=== PATIENT | female | born 1945 | race Hispanic/Latino ===

== ENCOUNTER → 2024-08-31 | Outpatient (REF) | payer BC ==
[~2024-08-31] MED LIST: IOPAMIDOL 370 MG/ML 100 ML INFUS..BTL INJ ONE; SODIUM CHLORIDE 0.9% 100 ML ONE
[2024-08-31 14:39] LABS: CREATININE, SERUM 0.82 mg/dL (0.57-1.11)
== END ==
LOC: CT 13:43
PROVIDERS: ATTEND Internal Medicine Cardiovascular Disease
DX: I73.89 Other specified peripheral vascular diseases (principal)
CPT/HCPCS: 36415; 75635; 82565; 84520; J7050; Q9967

== ENCOUNTER 2024-09-11 23:33 | Observation (INO) | payer MEDICARE, BC ==
[~2024-09-11] VITALS: Ht 160 cm; Wt 74.9 kg
[2024-09-11 23:36] VITALS: PULSE 98; RESP 19; TEMP 97.9
[2024-09-12] VITALS (18 sets, daily range): BP systolic 135–189; BP diastolic 57–87; PULSE 81–105; RESP 11–27; TEMP 97.9–98.9; O2SAT 93–99
[2024-09-12 00:13] LABS: BASOPHILS % 0.3 % (0.0-1.0); HEMATOCRIT 42.3 % (34.2-44.1); HEMOGLOBIN 13.3 g/dL (12.0-16.0); LYMPHOCYTES # (AUTO) 0.5 (1.0-3.2); LYMPHOCYTES % 6.1 % (18.0-39.1); MEAN CORPUSCULAR HEMOGLOBIN 29.4 pg (28-32); MEAN CORPUSCULAR HGB CONC 31.4 g/dL (31-35); MEAN CORPUSCULAR VOLUME 93.4 fL (81-99); MONOCYTES % 11.6 % (4.4-11.3); NEUTROPHILS # (AUTO) 7.2 (2.1-6.9); NEUTROPHILS % 81.4 % (38.7-80.0); PLATELET COUNT 256 x10e3/uL (140-360); RED BLOOD COUNT 4.53 x10e6/uL (3.6-5.1); RED CELL DISTRIBUTION WIDTH 13.3 % (11.7-14.4)
[2024-09-12] MEDS: DEXTROSE 50% SYRINGE 50 ML IV STA (01:19)
[2024-09-12] MEDS: DEXTROSE 5%/0.45% SOD CHL 1,000 ML IV ONE (01:19)
[2024-09-12 01:21] LABS: ANION GAP 16.2 mmol/L (8-16); CALCIUM 9.2 mg/dL (8.4-10.2); CREATININE, SERUM 0.8 mg/dL (0.57-1.11)
[2024-09-12 01:26] LABS: POTASSIUM 4.2 mmol/L (3.5-5.1)
[2024-09-12] MEDS ORDERED: ONDANSETRON HCL INJ 2MG/ML 2ML 2 MG/ML VIAL IV PRN (01:45)
[2024-09-12] MEDS ORDERED: DEXTROSE 50% SYRINGE 50 ML IV PRN (01:45)
[2024-09-12] MEDS ORDERED: COLCHICINE0.6 M1 PO (08:58)
[2024-09-12] MEDS ORDERED: LISINOPRIL10 MG PO (08:58)
[2024-09-12] MEDS ORDERED: GLIMEPIRIDE1 MG PO (08:58)
[2024-09-12] MEDS ORDERED: METFORMIN HCL500 M1 PO (08:58)
[2024-09-12] MEDS ORDERED: HYDRALAZINE HCL 20 MG/ML VIAL IV PRN (10:30)
[2024-09-12] MEDS ORDERED: BISACODYL 10 MG SUPP PR PRN (10:30)
[2024-09-12] MEDS ORDERED: POLYETHYLENE GLYCOL 3350 17 GM PACK PO PRN (10:30)
[2024-09-12] MEDS: LISINOPRIL 10 MG TAB PO SCH (12:04)
[2024-09-12] MEDS: HEPARIN SOD (PORCINE) 1000 UNIT/ML 30ML ONE (15:37)
[2024-09-12] MEDS: NITROGLYCERIN/D5W 200 MCG/ML 250 ML ONE (15:38)
[2024-09-12] MEDS: VERAPAMIL HCL 2.5 MG/ML 2 ML VIAL ONE (15:38)
[2024-09-12] MEDS: HEPARIN SOD/SOD CHLORIDE 2,000 ML ONE (15:38)
[2024-09-12] MEDS: LIDOCAINE HCL 2% LOCAL 20 ML VIAL ONE (15:38)
[2024-09-12] MEDS: IOPAMIDOL 370 MG/ML 100 ML INFUS..BTL INJ ONE ×2 (15:39→15:40)
[2024-09-12] MEDS: SODIUM CHLORIDE 0.9% 1000ML 2,000 ML ONE (15:39)
[2024-09-12] MEDS: MIDAZOLAM HCL 2 MG/2 ML VIAL ONE (15:40)
[2024-09-12] MEDS: FENTANYL CITRATE/PF 100MCG/2 ML INJ ONE (15:40)
[2024-09-12] MEDS: SODIUM CHLORIDE 0.9% 1000ML 1,000 ML ONE (15:41)
[2024-09-12] MEDS: CLOPIDOGREL BISULFATE 75 MG TAB ONE (15:41)
[2024-09-12] MEDS: ASPIRIN 325 MG TAB ONE (15:41)
[2024-09-12] MEDS: ENOXAPARIN SOD INJ 40 MG/0.4 ML SYR SC SCH (16:31)
[2024-09-12] MEDS: ACETAMINOPHEN 325 MG TAB PO PRN (19:02)
[2024-09-13] VITALS (7 sets, daily range): BP systolic 132–163; BP diastolic 45–76; PULSE 79–86; RESP 15–23; TEMP 97.6–98; O2SAT 97–99
[2024-09-13 06:45] LABS: BASOPHILS % 0.3 % (0.0-1.0); HEMATOCRIT 36.4 % (34.2-44.1); HEMOGLOBIN 11.6 g/dL (12.0-16.0); LYMPHOCYTES # (AUTO) 0.7 (1.0-3.2); LYMPHOCYTES % 11.4 % (18.0-39.1); MEAN CORPUSCULAR HEMOGLOBIN 29.5 pg (28-32); MEAN CORPUSCULAR HGB CONC 31.9 g/dL (31-35); MEAN CORPUSCULAR VOLUME 92.6 fL (81-99); MONOCYTES # (AUTO) 0.8 (0.2-0.8); MONOCYTES % 11.9 % (4.4-11.3); NEUTROPHILS # (AUTO) 4.9 (2.1-6.9); NEUTROPHILS % 75.9 % (38.7-80.0); PLATELET COUNT 237 x10e3/uL (140-360); RED BLOOD COUNT 3.93 x10e6/uL (3.6-5.1); RED CELL DISTRIBUTION WIDTH 13.3 % (11.7-14.4); WHITE BLOOD COUNT 6.49 x10e3/uL (4.8-10.8)
[2024-09-13 07:17] LABS: CREATININE, SERUM 0.9 mg/dL (0.57-1.11)
[2024-09-13] MEDS ORDERED: SENNOSIDES 8.6 MG TAB PO SCH (09:00)
[2024-09-13] MEDS ORDERED: DOCUSATE SODIUM 100 MG CAP PO SCH (09:00)
[2024-09-13] MEDS ORDERED: PLAVIX75 MG PO (09:52)
[2024-09-13] MEDS ORDERED: ASPIRIN EC81 MG PO (09:52)
[2024-09-13] MEDS ORDERED: ATORVASTATIN CA40 MG PO (09:52)
[2024-09-13] MEDS: ASPIRIN 81 MG CHEW TAB PO SCH (10:17)
[2024-09-13] MEDS: CLOPIDOGREL BISULFATE 75 MG TAB PO SCH (10:18)
[2024-09-13] MEDS ORDERED: CLOPIDOGREL75 MG PO (11:42)
== END 2024-09-13 12:25 | disposition home or self-care (01) ==
LOC: ER 23:37 → INTOOBSV 09-12 01:44 → ERHOLD 09-12 01:44 → ICU 09-12 02:31
PROVIDERS: ADMIT Internal Medicine; ATTEND Internal Medicine
DX: T38.3X1A Poisoning by insulin and oral hypoglycemic [antidiabetic] drugs, accidental (unintentional), initial encounter (principal); E11.649 Type 2 diabetes mellitus with hypoglycemia without coma; G93.41 Metabolic encephalopathy; I70.223 Atherosclerosis of native arteries of extremities with rest pain, bilateral legs; I70.92 Chronic total occlusion of artery of the extremities; I10 Essential (primary) hypertension; K52.1 Toxic gastroenteritis and colitis; E78.5 Hyperlipidemia, unspecified; Z79.84 Long term (current) use of oral hypoglycemic drugs; Z79.82 Long term (current) use of aspirin; Z79.02 Long term (current) use of antithrombotics/antiplatelets; Z79.899 Other long term (current) drug therapy
CPT/HCPCS: 36415 ×3; 37225; 70450; 76937; 80048 ×2; 82948 ×3; 83036; 83735; 84484; 85025 ×2; 93005; 94799; 99284; C1724; C1760 ×2; C1769 ×3; C1887; C1894; C2623; G0378 ×2; J1644; J1650; J2003; J2250; J3010; J7030; J7799; Q9967; 36247; 37224; 75630; 75716; 99152; 99153

== ENCOUNTER 2024-11-09 13:00 | Inpatient (IN) | payer BC, MEDICARE ==
[2024-11-08 10:10] LABS: BASOPHILS % 0.4 % (0.0-1.0); HEMATOCRIT 37.6 % (34.2-44.1); HEMOGLOBIN 12.4 g/dL (12.0-16.0); LYMPHOCYTES # (AUTO) 0.7 (1.0-3.2); MEAN CORPUSCULAR HEMOGLOBIN 29.3 pg (28-32); MEAN CORPUSCULAR VOLUME 88.9 fL (81-99); MONOCYTES # (AUTO) 0.5 (0.2-0.8); MONOCYTES % 9.3 % (4.4-11.3); NEUTROPHILS # (AUTO) 3.9 (2.1-6.9); NEUTROPHILS % 76.7 % (38.7-80.0); PLATELET COUNT 193 x10e3/uL (140-360); RED BLOOD COUNT 4.23 x10e6/uL (3.6-5.1); RED CELL DISTRIBUTION WIDTH 14.8 % (11.7-14.4); WHITE BLOOD COUNT 5.07 x10e3/uL (4.8-10.8)
[2024-11-08 10:40] LABS: INR 1.04; PROTHROMBIN TIME 14.2 seconds (11.9-14.5)
[2024-11-08 10:49] LABS: ALBUMIN 3.8 g/dL (3.5-5.0); ALBUMIN/GLOBULIN RATIO 1.4 (0.8-2.0); ANION GAP 17.3 mmol/L (8-16); BILIRUBIN,TOTAL 0.9 mg/dL (0.2-1.2); CALCIUM 9.4 mg/dL (8.4-10.2); CREATININE, SERUM 0.79 mg/dL (0.57-1.11); POTASSIUM 4.3 mmol/L (3.5-5.1); TOTAL PROTEIN 6.6 g/dL (6.5-8.1)
[2024-11-09] VITALS (46 sets, daily range): BP systolic 55–177; BP diastolic 31–107; PULSE 52–89; RESP 10–26; TEMP 95–98.5; O2SAT 90–100
[~2024-11-09] VITALS: Ht 160 cm; Wt 69.4 kg
[~2024-11-09 13:00] MED LIST changes: +ASPIRIN EC81 MG PO; +ATORVASTATIN CA40 MG PO; +CLOPIDOGREL75 MG PO; +COLCHICINE0.6 M1 PO; +GLIMEPIRIDE1 MG PO; -IOPAMIDOL 370 MG/ML 100 ML INFUS..BTL INJ ONE; +LISINOPRIL10 MG PO; +METFORMIN HCL500 M1 PO; +PLAVIX75 MG PO; -SODIUM CHLORIDE 0.9% 100 ML ONE
[2024-11-09] MEDS ORDERED: SODIUM CHLORIDE FLUSH 10 ML SYR INJ PRN (16:45)
[2024-11-09 18:04] LABS: BASOPHILS # (AUTO) 0.1 (0.0-0.1); BASOPHILS % 0.3 % (0.0-1.0); HEMATOCRIT 33.7 % (34.2-44.1); HEMOGLOBIN 11.3 g/dL (12.0-16.0); LYMPHOCYTES # (AUTO) 1.7 (1.0-3.2); LYMPHOCYTES % 10.9 % (18.0-39.1); MEAN CORPUSCULAR HEMOGLOBIN 29.9 pg (28-32); MEAN CORPUSCULAR HGB CONC 33.5 g/dL (31-35); MEAN CORPUSCULAR VOLUME 89.2 fL (81-99); MONOCYTES # (AUTO) 1.5 (0.2-0.8); MONOCYTES % 9.9 % (4.4-11.3); NEUTROPHILS % 77.8 % (38.7-80.0); PLATELET COUNT 250 x10e3/uL (140-360); RED BLOOD COUNT 3.78 x10e6/uL (3.6-5.1); RED CELL DISTRIBUTION WIDTH 14.8 % (11.7-14.4); WHITE BLOOD COUNT 15.38 x10e3/uL (4.8-10.8)
[2024-11-09 18:13] LABS: ANION GAP 12.8 mmol/L (8-16); CALCIUM 7.9 mg/dL (8.4-10.2); CREATININE, SERUM 0.7 mg/dL (0.57-1.11); POTASSIUM 3.8 mmol/L (3.5-5.1)
[2024-11-09] MEDS: HEPARIN SOD/SOD CHLORIDE 2,000 ML ONE ×2 (22:32→22:37)
[2024-11-09] MEDS: HEPARIN SOD (PORCINE) 1000 UNIT/ML 30ML ONE ×2 (22:33→22:38)
[2024-11-09] MEDS: NITROGLYCERIN/D5W 200 MCG/ML 0 ML ONE (22:35)
[2024-11-09] MEDS: VERAPAMIL HCL 2.5 MG/ML 2 ML VIAL ONE ×2 (22:35→22:38)
[2024-11-09] MEDS: LIDOCAINE HCL 2% LOCAL 20 ML VIAL ONE ×2 (22:35→22:38)
[2024-11-09] MEDS: SODIUM CHLORIDE 0.9% 1000ML 2,000 ML ONE (22:35)
[2024-11-09] MEDS: IOPAMIDOL 370 MG/ML 100 ML INFUS..BTL INJ ONE ×2 (22:35→22:38)
[2024-11-09] MEDS: MIDAZOLAM HCL 2 MG/2 ML VIAL ONE ×3 (22:36→22:38)
[2024-11-09] MEDS: FENTANYL CITRATE/PF 100MCG/2 ML INJ ONE ×3 (22:36→22:38)
[2024-11-09] MEDS: ASPIRIN 325 MG TAB ONE (22:36)
[2024-11-09] MEDS: Morphine 4mg INJECTION 4 MG/ML INJ ONE (22:37)
[2024-11-09] MEDS: CLOPIDOGREL BISULFATE 75 MG TAB ONE (22:37)
[2024-11-09] MEDS: PHENYLEPHRINE HCL 1% 10 MG/ML VIAL ONE (22:37)
[2024-11-09] MEDS: NOREPINEPHRINE 8 MG/D5W 250 ML 250 ML ONE (22:37)
[2024-11-09] MEDS: SODIUM CHLORIDE 0.9% 100 ML ONE (22:37)
[2024-11-09] MEDS: NITROGLYCERIN/D5W 200 MCG/ML 250 ML ONE (22:38)
[2024-11-09] MEDS: MUPIROCIN 2% OINT 22 GM TUBE TOP SCH (22:54)
[2024-11-09] MEDS: ONDANSETRON HCL INJ 2MG/ML 2ML 2 MG/ML VIAL IV PRN (23:22)
[2024-11-10] VITALS (19 sets, daily range): BP systolic 108–185; BP diastolic 41–94; PULSE 70–95; RESP 13–30; TEMP 98.1–98.2; O2SAT 94–100
[2024-11-10] MEDS ORDERED: GUAIFENESIN/DEXTROMETHORPHAN LIQD 5 ML UDC PO PRN (01:00)
[2024-11-10] MEDS ORDERED: MELATONIN 3 MG TAB PO PRN (01:00)
[2024-11-10] MEDS ORDERED: DEXTROSE 50% SYRINGE 50 ML IV PRN (01:00)
[2024-11-10] MEDS ORDERED: DOCUSATE SODIUM 100 MG CAP PO PRN (01:00)
[2024-11-10] MEDS ORDERED: MAGNESIUM/ALUMINUM/SIMETHICONE 30 ML UDC PO PRN (01:00)
[2024-11-10] MEDS: SODIUM CHLORIDE 0.9% 1000ML 1,000 ML IV SCH (01:11)
[2024-11-10] MEDS: ACETAMINOPHEN 325 MG TAB PO PRN (01:12)
[2024-11-10 07:02] LABS: BASOPHILS % 0.1 % (0.0-1.0); HEMATOCRIT 27.6 % (34.2-44.1); LYMPHOCYTES # (AUTO) 0.5 (1.0-3.2); LYMPHOCYTES % 5.1 % (18.0-39.1); MEAN CORPUSCULAR HEMOGLOBIN 29.5 pg (28-32); MEAN CORPUSCULAR HGB CONC 32.6 g/dL (31-35); MEAN CORPUSCULAR VOLUME 90.5 fL (81-99); MONOCYTES % 9.1 % (4.4-11.3); NEUTROPHILS # (AUTO) 8.9 (2.1-6.9); NEUTROPHILS % 85.2 % (38.7-80.0); PLATELET COUNT 185 x10e3/uL (140-360); RED BLOOD COUNT 3.05 x10e6/uL (3.6-5.1); RED CELL DISTRIBUTION WIDTH 14.9 % (11.7-14.4)
[2024-11-10 07:25] LABS: ANION GAP 14.2 mmol/L (8-16); CALCIUM 8.3 mg/dL (8.4-10.2); CREATININE, SERUM 0.81 mg/dL (0.57-1.11); POTASSIUM 4.2 mmol/L (3.5-5.1)
[2024-11-10] MEDS: INSULIN REGULAR, HUMAN 100 UNIT/1 ML SQ SCH (07:30)
[2024-11-10 08:26] LABS: FERRITIN 44.3 ng/mL (4.63-204.00)
[2024-11-10] MEDS: HYDROCODONE/APAP 5MG-325MG TAB PO PRN (08:42)
[2024-11-10] MEDS: Morphine 2mg Syringe 2 MG/ML SYR IV ONE (10:52)
[2024-11-10] MEDS: HYDRALAZINE HCL 20 MG/ML VIAL IV PRN (11:43)
[2024-11-10] MEDS ORDERED: HEPARIN SOD/DEXTROSE 5% 25000 UNIT/250 ML BAG IV SCH (12:45)
[2024-11-10 13:10] LABS: HEMATOCRIT 29.3 % (34.2-44.1); HEMOGLOBIN 9.6 g/dL (12.0-16.0)
[2024-11-10] MEDS: NITROGLYCERIN 2% OINT 1 GM PKT TOP ONE (13:27)
[2024-11-10] MEDS: HYDROMORPHONE 1MG/1ML INJ IV ONE (13:32)
[2024-11-10] MEDS: HEPARIN SOD (PORCINE) 5,000 UNIT/ML VIAL IV ONE (13:54)
[2024-11-10] MEDS: HEPARIN 25,000 UNIT/D5W 250ML 250 ML IV SCH (14:06)
[2024-11-10] MEDS ORDERED: ATORVASTATIN 40 MG TAB PO SCH (21:00)
== END 2024-11-10 15:05 | disposition other institution (70) | DRG 270 ==
LOC: CATH LAB 13:00 → ICU 20:38
PROVIDERS: ADMIT Internal Medicine Cardiovascular Disease; ATTEND Internal Medicine Cardiovascular Disease
PROC: 04CP3ZZ Extirpation of Matter from Right Anterior Tibial Artery, Percutaneous Approach (ICD-10-PCS; principal; 2024-11-09)
PROC: 047L3Z1 Dilation of Left Femoral Artery using Drug-Coated Balloon, Percutaneous Approach (ICD-10-PCS; 2024-11-09)
PROC: B41D1ZZ Fluoroscopy of Aorta and Bilateral Lower Extremity Arteries using Low Osmolar Contrast (ICD-10-PCS; 2024-11-09)
PROC: 3E033XZ Introduction of Vasopressor into Peripheral Vein, Percutaneous Approach (ICD-10-PCS; 2024-11-09)
PROC: 047P3ZZ Dilation of Right Anterior Tibial Artery, Percutaneous Approach (ICD-10-PCS; 2024-11-09)
DX: E11.51 Type 2 diabetes mellitus with diabetic peripheral angiopathy without gangrene (principal); R57.1 Hypovolemic shock; I70.92 Chronic total occlusion of artery of the extremities; L76.32 Postprocedural hematoma of skin and subcutaneous tissue following other procedure; E78.5 Hyperlipidemia, unspecified; I10 Essential (primary) hypertension; I70.221 Atherosclerosis of native arteries of extremities with rest pain, right leg; I70.211 Atherosclerosis of native arteries of extremities with intermittent claudication, right leg; Y84.8 Other medical procedures as the cause of abnormal reaction of the patient, or of later complication, without mention of misadventure at the time of the procedure; Z79.84 Long term (current) use of oral hypoglycemic drugs; Z79.82 Long term (current) use of aspirin; Z79.02 Long term (current) use of antithrombotics/antiplatelets; Z83.3 Family history of diabetes mellitus; Z82.49 Family history of ischemic heart disease and other diseases of the circulatory system
CPT/HCPCS: 36245; 36247; 36415; 37224; 37228; 37229; 37232; 37233; 75625; 75710; 75736; 76937; 80048; 80053; 82728; 82948; 83540; 84466; 85014; 85018; 85025; 85610; 85730; 86850; 86900; 93925; 94799; 99152; 99153; C1724; C1725; C1760; C1769; C1894; C2623; J0360; J1171; J1644; J2003; J2250; J2270; J2371; J2405; J7030; J7050; Q9967